=== PATIENT | male | born 1975 | race Caucasian/White ===

== ENCOUNTER → 2017-07-15 | Outpatient (CLI) | payer OTHER ==
--- NOTE | 2017-07-15 12:53 | RAD ---
Indication neck pain. No history of injury. AP and lateral views of the cervical spine were obtained as well as an odontoid view. C1-T1 are identified. Vertebral height alignment and disc spaces are unremarkable. There are no significant degenerative changes apparent on plain films. Prevertebral soft tissues appear normal. IMPRESSION: Normal plain films of the cervical spine
== END | disposition home or self-care (01) ==
LOC: DXRADRC 12:40
PROVIDERS: ATTEND Nurse Practitioner Family
DX: M54.2 Cervicalgia (principal)
CPT/HCPCS: 72040

== ENCOUNTER 2018-09-04 06:53 | Observation (INO) | payer OTHER ==
[~2018-09-04] VITALS: Ht 177.8 cm; Wt 99.8 kg
--- NOTE | 2018-09-04 07:11 | EKG ---
[address] [address] Test Date: 2018-09-04 Test Time: 07:04:37 Pat Name: THEODORE BUENO Department: Room: Gender: M Rivet Heater: : 1975 Requested By: THEODORE ROBLERO Order Number: [id number] Reading MD: Jimy Licea Measurements Intervals [place] Rate: 89 P: 40 ND: 150 QRS: 26 QRSD: 96 T: 12 QT: 328 QTc: 405 Interpretive Statements SINUS RHYTHM NORMAL ECG Electronically Signed On 09-12-2018 9:38:11 DENTAL AIDE by Jimy Licea
[2018-09-04] MEDS ORDERED: cloNIDine HCL 0.1 MG TABLET PO ONE (07:15)
[2018-09-04 07:57] LABS: BASO # 0.1 x10^3/uL (0.0-0.2); BASO % 1 % (0-3); EOS # 0.2 x10^3/uL (0.0-0.7); EOS % 3 % (0-3); HEMATOCRIT 50.7 % (39.0-53.0); HEMOGLOBIN 17.4 g/dL (13.0-17.5); LYMPH # 2.2 x10^3/uL (1.0-4.8); LYMPH % 35 % (24-48); MEAN CORPUSCULAR HEMOGLOBIN 31 pg (25-35); MEAN CORPUSCULAR HGB CONC 34 g/dL (31-37); MEAN CORPUSCULAR VOLUME 90 fL (79-100); MONO # 0.6 x10^3/uL (0.0-1.1); MONO % 10 % (0-9); NEUT # 3.1 x10^3uL (1.8-7.7); NEUT % 50 % (31-73); PLATELET COUNT 227 x10^3/uL (140-400); RED BLOOD COUNT 5.62 x10^6/uL (4.30-5.70); WHITE BLOOD COUNT 6.1 x10^3/uL (4.0-11.0)
[2018-09-04 08:03] LABS: AMPHETAMINE/METHAMPHETAMINE NEG (NEG); BARBITURATES NEG (NEG); BENZODIAZEPINES NEG (NEG); CANNABINOIDS NEG (NEG); COCAINE NEG (NEG); METHADONE NEG (NEG); OPIATES NEG (NEG); PHENCYCLIDINE NEG (NEG)
[2018-09-04 08:13] LABS: ALBUMIN 3.8 g/dL (3.4-5.0); ALBUMIN/GLOBULIN RATIO 1.3 (1.0-1.7); CALCIUM 8.4 mg/dL (8.5-10.1); GFR 81.2; TOTAL BILIRUBIN 0.3 mg/dL (0.2-1.0); TOTAL PROTEIN 6.7 g/dL (6.4-8.2)
--- NOTE | 2018-09-04 08:24 | RAD ---
CHEST AP ONLY History: PCXR -extreme shortness of breath, has lessened since arrival in ED. Comparison: October 28, 2016 image but the report is not available. Cardiomediastinal silhouette: Not grossly enlarged. Lungs: No focal airspace consolidation. Pleura: No evidence of pleural effusion. Pneumothorax: None visualized Support Devices: None. Impression: Stable exam, no acute infiltrate. Electronically signed by: Ronald Garvey MD (09/04/2018 8:20 AM) [id number]
[2018-09-04 08:28] LABS: POTASSIUM 3.9 mmol/L (3.5-5.1)
[2018-09-04] MEDS ORDERED: ONDANSETRON PF 4 MG/2 ML VIAL. IV PRN (08:45)
--- NOTE | 2018-09-04 09:50 | PDOC2 ---
REJI QUINTANA APRN 09/04/18 0950: CONSULT Date of Admission DATE: 09/04/18 TIME: 09:39 Reason for Consult: cp History of Present Illness Mr Sotelo is a 43 year old male who presented to the ED with complaints of chest pressure and dyspnea after sexual activity this am. He reports feeling like he was unable to get a deep breath. His discomfort Lasted ~45 min. He deneis any exacerbating / relieving factors. He denies radiation or other associated symptoms. He reports 1 prior episode similar in June while snorkeling in [place]. At the time he thought it was anxiety. He denies regular exercise but active at work. He is able to walk up and down stairs in his home without problems. He denies congestive symptoms, palpitations, lightheadedness , or syncope. He does snore, wakes up frequently at night to urinate, and complains of fatigue. He states that his says he has sleep apnea. Cardiovascular: hyperipidemia Pulmonary: Other (witnessed ORAL, not diagnosed.) Psych: Anxiety Musculoskeletal: low back pain (Chronic), Osteoarthritis ENT: Sinusitis, Other (chronic serous otitis) Endocrine: Osteoporosis (hypogonadism ), Other Past Surgical History lumbar discectomy Family History premature coronary disease, diabetes Social History smoker, social ETOH, no illicit drugs Current Medications Home meds include Vytorin, tricor, testosterone Current Medications Clonidine HCl (Catapres) 0.2 mg 1X ONCE PO Last administered on 09/04/18at 07: 36; Start 09/04/18 at 07:15; Stop 09/04/18 at 07:29; Status DC Ondansetron HCl (Zofran) 4 mg PRN Q4HRS PRN IV NAUSEA/VOMITING; Start at 08:45; Stop 09/05/18 at 08:44 Allergies: Coded Allergies: No Known Drug Allergies (Unverified , 09/04/18) Review of System as per HPI or negative General: Alert, Oriented X3, Cooperative, No acute distress HEENT: Atraumatic, EOMI, Mucous membr. moist/pink Lungs: Clear to auscultation, Normal air movement Heart: Regular rate, Normal S1, Normal S2, No murmurs, Other (no gallops, clicks or rubs) Abdomen: Normal bowel sounds, Soft, No tenderness Extremities: No cyanosis, No edema, Normal pulses Neuro: Normal speech, Strength at 5/5 X4 ext, Cranial nerves 3-12 NL Psych/Mental Status: Mental status NL, Mood NL VITALS Vital Signs Date Time Temp Pulse Resp B/P (MAP) Pulse Ox O2 Delivery O2 Flow Rate FiO2 09/04/18 08:02 18 157/90 (112) 09/04/18 07:36 95 09/04/18 07:19 98.4 94 Room Air Labs Laboratory Tests Test 09/04/18 07:31 09/04/18 07:36 Urine Opiates Screen Neg (NEG) Urine Methadone Screen Neg (NEG) Urine Barbiturates Neg (NEG) Urine Phencyclidine Screen Neg (NEG) Urine Amphetamine/Methamphetamine Neg (NEG) Urine Benzodiazepines Screen Neg (NEG) Urine Cocaine Screen Neg (NEG) Urine Cannabinoids Screen Neg (NEG) Urine Ethyl Alcohol Neg (NEG) White Blood Count 6.1 x10^3/uL (4.0-11.0) Red Blood Count 5.62 x10^6/uL (4.30-5.70) Hemoglobin 17.4 g/dL (13.0-17.5) Hematocrit 50.7 % (39.0-53.0) Mean Corpuscular Volume 90 fL (79-100) Mean Corpuscular Hemoglobin 31 pg (25-35) Mean Corpuscular Hemoglobin Concent 34 g/dL (31-37) Red Cell Distribution Width 13.0 % (11.5-14.5) Platelet Count 227 x10^3/uL (140-400) Neutrophils (%) (Auto) 50 % (31-73) Lymphocytes (%) (Auto) 35 % (24-48) Monocytes (%) (Auto) 10 % (0-9) Eosinophils (%) (Auto) 3 % (0-3) Basophils (%) (Auto) 1 % (0-3) Neutrophils # (Auto) 3.1 x10^3uL (1.8-7.7) Lymphocytes # (Auto) 2.2 x10^3/uL (1.0-4.8) Monocytes # (Auto) 0.6 x10^3/uL (0.0-1.1) Eosinophils # (Auto) 0.2 x10^3/uL (0.0-0.7) Basophils # (Auto) 0.1 x10^3/uL (0.0-0.2) Sodium Level 139 mmol/L (136-145) Potassium Level 3.9 mmol/L (3.5-5.1) Chloride Level 103 mmol/L (98-107) Carbon Dioxide Level 24 mmol/L (21-32) Anion Gap 12 (6-14) Blood Urea Nitrogen 13 mg/dL (8-26) Creatinine 1.0 mg/dL (0.7-1.3) Estimated GFR (Cockcroft-Gault) 81.2 BUN/Creatinine Ratio 13 (6-20) Glucose Level 140 mg/dL (70-99) Calcium Level 8.4 mg/dL (8.5-10.1) Total Bilirubin 0.3 mg/dL (0.2-1.0) Aspartate Amino Transf (AST/SGOT) 25 U/L (15-37) Alanine Aminotransferase (ALT/SGPT) 44 U/L (16-63) Alkaline Phosphatase 52 U/L (46-116) Troponin I Quantitative < 0.017 ng/mL (0-0.055) Total Protein 6.7 g/dL (6.4-8.2) Albumin 3.8 g/dL (3.4-5.0) Albumin/Globulin Ratio 1.3 (1.0-1.7) Images CXR - Impression: Stable exam, no acute infiltrate. EKG- sinus rhythm, no acute ischemic abn Assessment/Plan 1. Chest pain - CE neg x 1, no acute ischemia on EKG. Start aspirin, check echo, low dose metoprolol. Serial enzymes. If enzymes remain negative and echo without significant abn would be ok for outpatient MPI. 2. HTN - Likely some contribution from chronic decongestant use. monitor. start low dose metoprolol. If echo wnl could consider alternative antihypertensive. 3. HLD - check lipids, resume home statin. PHILLIP BUCHANAN MD 09/04/18 6786: CONSULT Assessment/Plan Patient seen and examined. Agree with MANAGER SEARCH's assessment and plan. CP with atypical features ME ruled out 2D echo showed normal LV function without any WMA Plan for ischemic evaluation as outpatient Thank you for your consultation REJI QUITNANA APRN Sep 04, 2018 09:50 PHILLIP BUCHANAN MD Sep 04, 2018 21:35
[2018-09-04] MEDS ORDERED: ASPIRIN ENTERIC COATED 325 MG TABLET.DR. PO SCH (10:00)
[2018-09-04] MEDS ORDERED: KETOROLAC 30 MG/ML VIAL. IV ONE (10:00)
[2018-09-04] MEDS ORDERED: TEST200V3 IM (10:08)
[2018-09-04] MEDS ORDERED: IBUP400T18 PO (10:08)
[2018-09-04] MEDS ORDERED: PSEU120T9 PO (10:08)
[2018-09-04] MEDS ORDERED: EZET1TAB61 PO (10:08)
[2018-09-04 10:43] VITALS: BP 144/100
--- NOTE | 2018-09-04 11:30 | ED.ADGEN ---
Past History Past Medical History: High Cholesterol Alcohol Use: None Drug Use: None Adult General Chief Complaint Chief Complaint Chest heaviness HPI HPI Patient is a 43-year-old male presents with chest heaviness during sexual her course this a.m. Chest heaviness associated approximately 45 minutes though dyspnea. Pain is nonradiating. No cough, sore throat, abdominal or back pain. Denies T exercise, denies exertion going up and down steps. Patient is active at work denies symptoms going up and down powerlines. No other acute symptoms or complaints. [] Review of Systems Review of Systems ROS as per HPI All other systems were reviewed and found to be within normal limits, except as documented in this note. Current Medications Current Medications Current Medications Medications (Trade) Dose Ordered Sig/Laney Start Time Stop Time Status Last Admin Dose Admin Clonidine HCl (Catapres) 0.2 mg 1X ONCE 09/04/18 07:15 09/04/18 07:29 DC 09/04/18 07:36 0.2 MG Allergies Allergies Allergies Coded Allergies Type Severity Reaction Last Updated Verified No Known Drug Allergies 09/04/18 No Physical Exam Physical Exam Constitutional: Well developed, well nourished, no acute distress, non-toxic appearance. [] HENT: Normocephalic, atraumatic, bilateral external ears normal, oropharynx moist, no oral exudates, nose normal. [] Eyes: PERRLA, EOMI, conjunctiva normal, no discharge. [] Neck: Normal range of motion, no tenderness. [] Cardiovascular:Heart rate regular rhythm, no murmur [] Lungs & Thorax: Bilateral breath sounds clear to auscultation [] Abdomen: Bowel sounds normal, soft, no tenderness. [] Skin: Warm, dry. [] Back: No tenderness. [] Extremities: No tenderness. [] Neurologic: Alert and oriented X 3, normal motor function, normal sensory function, no focal deficits noted. [] Psychologic: Affect normal, judgement normal, mood normal. [] Current Patient Data Vital Signs Vital Signs Date Time Temp Pulse Resp B/P (MAP) Pulse Ox O2 Delivery O2 Flow Rate FiO2 09/04/18 08:02 18 157/90 (112) 09/04/18 07:36 95 09/04/18 07:19 98.4 94 Room Air Lab Results Laboratory Tests Test 09/04/18 07:31 09/04/18 07:36 Urine Opiates Screen Neg (NEG) Urine Methadone Screen Neg (NEG) Urine Barbiturates Neg (NEG) Urine Phencyclidine Screen Neg (NEG) Urine Amphetamine/Methamphetamine Neg (NEG) Urine Benzodiazepines Screen Neg (NEG) Urine Cocaine Screen Neg (NEG) Urine Cannabinoids Screen Neg (NEG) Urine Ethyl Alcohol Neg (NEG) White Blood Count 6.1 x10^3/uL (4.0-11.0) Red Blood Count 5.62 x10^6/uL (4.30-5.70) Hemoglobin 17.4 g/dL (13.0-17.5) Hematocrit 50.7 % (39.0-53.0) Mean Corpuscular Volume 90 fL (79-100) Mean Corpuscular Hemoglobin 31 pg (25-35) Mean Corpuscular Hemoglobin Concent 34 g/dL (31-37) Red Cell Distribution Width 13.0 % (11.5-14.5) Platelet Count 227 x10^3/uL (140-400) Neutrophils (%) (Auto) 50 % (31-73) Lymphocytes (%) (Auto) 35 % (24-48) Monocytes (%) (Auto) 10 % (0-9) H Eosinophils (%) (Auto) 3 % (0-3) Basophils (%) (Auto) 1 % (0-3) Neutrophils # (Auto) 3.1 x10^3uL (1.8-7.7) Lymphocytes # (Auto) 2.2 x10^3/uL (1.0-4.8) Monocytes # (Auto) 0.6 x10^3/uL (0.0-1.1) Eosinophils # (Auto) 0.2 x10^3/uL (0.0-0.7) Basophils # (Auto) 0.1 x10^3/uL (0.0-0.2) Sodium Level 139 mmol/L (136-145) Potassium Level 3.9 mmol/L (3.5-5.1) Chloride Level 103 mmol/L (98-107) Carbon Dioxide Level 24 mmol/L (21-32) Anion Gap 12 (6-14) Blood Urea Nitrogen 13 mg/dL (8-26) Creatinine 1.0 mg/dL (0.7-1.3) Estimated GFR (Cockcroft-Gault) 81.2 BUN/Creatinine Ratio 13 (6-20) Glucose Level 140 mg/dL (70-99) H Calcium Level 8.4 mg/dL (8.5-10.1) L Total Bilirubin 0.3 mg/dL (0.2-1.0) Aspartate Amino Transferase (AST) 25 U/L (15-37) Alanine Aminotransferase (ALT) 44 U/L (16-63) Alkaline Phosphatase 52 U/L (46-116) Troponin I Quantitative < 0.017 ng/mL (0-0.055) Total Protein 6.7 g/dL (6.4-8.2) Albumin 3.8 g/dL (3.4-5.0) Albumin/Globulin Ratio 1.3 (1.0-1.7) EKG EKG [EKG: Normal sinus rhythm, no acute ST-T wave changes.] Radiology/Procedures Radiology/Procedures [] Course & Med Decision Making Course & Med Decision Making Pertinent Labs and Imaging studies reviewed. (See chart for details) [Symptoms resolved with treatment of blood pressure. Troponin, EKG negative. Will admit for further cardiac evaluation.] Final Impression Final Impression [1 Chest pain 2. HTN] Dragon Disclaimer Dragon Disclaimer This electronic medical record was generated, in whole or in part, using a voice recognition dictation system. THEODORE ROBLERO DO Sep 04, 2018 11:30
[2018-09-04] MEDS ORDERED: PSEUDOEPHEDRINE ER 120 MG TABLET.ER. PO SCH (13:00)
[2018-09-04 15:14] VITALS: BP 136/89
[2018-09-04] MEDS ORDERED: METO25TA4 PO (16:58)
--- NOTE | 2018-09-04 17:41 | CARD ---
MR#: [id number] Date of Study: 09/04/2018 Ordering Physician: REJI QUINTANA, Referring Physician: ANTIONE CHO, Tech: Catia Smith APPROVED REPORT EXAM: Two-dimensional and M-mode echocardiogram with Doppler and color Doppler. Other Information Quality : GoodHR: 69bpm INDICATION Chest Pain RISK FACTORS Hypertension Hyperlipidemia Smoking 2D DIMENSIONS RVDd3.2 (2.9-3.5cm)Left Atrium(2D)4.2 (1.6-4.0cm) IVSd1.2 (0.7-1.1cm)Aortic Root(2D)3.5 (2.0-3.7cm) LVDd5.2 (3.9-5.9cm)LVOT Diameter2.4 (1.8-2.4cm) PWd1.5 (0.7-1.1cm)LVDs3.6 (2.5-4.0cm) FS (%) 32.0 %SV78.6 ml LVEF(%)59.7 (>50%) Aortic Valve AoV Peak Faraz.152.0cm/sAoV VTI28.1cm AO Peak GR.9.2mmHgLVOT Peak Faraz.100.8cm/s LVOT VTI 20.75cmAO Mean GR.6mmHg ERASMO (VMAX)2.21ej5RTP (VTI)3.25cm2 Mitral Valve MV E Dgcdgehq58.4cm/sMV DECEL [id number] MV A Bkiecqpq56.5cm/sE/A Ratio1.3 Pulmonary Valve PV Peak Zkxdxmcj763.0cm/sPV Peak Grad.4mmHg Tricuspid Valve TR P. Wxskqnww870lc/sRAP YICQHQSQ49pxSz TR Peak Gr.15seOpMWPM29wcRa LEFT VENTRICLE The left ventricle is normal size. There is moderate concentric left ventricular hypertrophy. The lef t ventricular systolic function is normal. The Ejection Fraction is 55-60%. There is normal LV segmen apple wall motion. Transmitral Doppler flow pattern is Grade II-pseudonormal filling dynamics. RIGHT VENTRICLE The right ventricle is normal size. There is normal right ventricular wall thickness. The right ventr icular systolic function is normal. ATRIA The left atrium size is normal. The right atrium size is normal. The interatrial septum is intact wit h no evidence for an atrial septal defect or patent foramen ovale as noted on 2-D or Doppler imaging. AORTIC VALVE The aortic valve is normal in structure and function. Doppler and Color Flow revealed trace aortic re gurgitation. There is no significant aortic valvular stenosis. MITRAL VALVE The mitral valve is normal in structure and function. There is no mitral valve stenosis. Doppler and Color-flow revealed trace mitral regurgitation. TRICUSPID VALVE The tricuspid valve is normal in structure and function. Doppler and Color Flow revealed trace tricus pid regurgitation. There is no tricuspid valve stenosis. PULMONIC VALVE The pulmonic valve is not well visualized. Doppler and Color Flow revealed trace pulmonic valvular re gurgitation. GREAT VESSELS The aortic root is normal in size. The IVC is dilated. PERICARDIAL EFFUSION There is no evidence of significant pericardial effusion. Critical Notification Critical Value: No <Conclusion> The left ventricular systolic function is normal. The Ejection Fraction is 55-60%. There is normal LV segmental wall motion. Trace mitral regurgitation. Trace tricuspid regurgitation. There is no evidence of significant pericardial effusion. Signed by : Jimy Licea, Electronically Approved : 09/04/2018 17:40:06
--- NOTE | 2018-09-04 18:07 | SSS ---
ADMIT DATE: 09/04/2018 HISTORY OF PRESENT ILLNESS: The patient is a 43-year-old male patient, who developed chest pressure and dyspnea after sexual activity this morning that lasted about 45 minutes. No exacerbating or relieving factors. No radiation. He apparently has 1 prior episode similar in June while snorkeling in [place], told it was anxiety. No regular exercise, but is active at work, up and down stairs in home without problems. No congestive symptoms, no palpitations, lightheadedness, syncope, snores, up frequently at night for urination. Complains of fatigue and states he has sleep apnea. PAST MEDICAL HISTORY: Significant for hyperlipidemia, especially hypertriglyceridemia, osteoarthritis, hypertension, chronic low back pain due to osteoarthritis and chronic otitis and osteoporosis as well as hypogonadism. PAST SURGICAL HISTORY: Significant for lumbar diskectomy. ALLERGIES: He has no known drug allergies. MEDICATIONS: He is currently on following medications: He is on pseudoephedrine 120 mg once a day, Zetia/simvastatin 10/20 one tablet once a day, ibuprofen 400 mg every 6 hours and testosterone cypionate 200 mg intramuscular once a week. FAMILY HISTORY: He has 1 older sister, who is alive and has type 2 diabetes. Mother is still alive and has hypertension and hyperlipidemia. Father is still alive, has diabetes, coronary artery disease, status post stent deployment and prostate cancer treated with radiation therapy. SOCIAL HISTORY: He is , has a son and a daughter. He smokes and chews tobacco. He does not drink alcohol. 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 REVIEW OF SYSTEMS: The patient denied any blurring of vision, cataract, or glaucoma. He has problems with his ear, which get clogged and usually ibuprofen and pseudoephedrine helps with that feeling. He does have stuffy nose, but denied any nosebleeds or postnasal drip. Denies any sore throat, sore tongue, toothache, hoarseness of voice or difficulty swallowing. Denied any nausea, vomiting, diarrhea or constipation. Denied any hematemesis, melena or hematochezia. Denied any dysuria, frequency or hematuria. Did complain of nocturia. He did complain of this chest pain, but denied any shortness of breath, orthopnea, paroxysmal nocturnal dyspnea. Denied any cough, phlegm or hemoptysis. Denied any chills, rigors, or fever. Denied any dizziness, lightheadedness, or vertigo. PHYSICAL EXAMINATION: GENERAL: On arrival to the Emergency Room, his blood pressure was high at 154/95. VITAL SIGNS: Heart rate was 95, temperature was 98.4, respiratory rate was 18 and oxygen saturation was 94%. HEAD, EYES, EARS, NOSE AND THROAT: Showed normocephalic, atraumatic. NECK: Supple. HEART: Showed normal first and second heart sounds. No gallop, rub or murmur. CHEST: Clear to auscultation. No crepitation or rhonchi. ABDOMEN: Distended, soft, nontender. No guarding or rigidity. No organomegaly. All hernial orifice intact. Bowel sounds normal. NEUROLOGIC: He was awake, alert, responding appropriately. All cranial nerves intact. He moves extremities without difficulty, ambulates without assistance or assistive devices. LABORATORY DATA: While in the Emergency Room, he has lab work done, which showed a serum sodium 139, potassium 3.9, chloride 103, bicarbonate 24, anion gap of 12, BUN 13, creatinine 1, estimated GFR was 81 mL per minute, his glucose was 140, calcium was 8.4. Total bilirubin, AST, ALT, alkaline phosphatase were normal. His total protein was 6.7, albumin 3.8. His white cell count was 6100, hemoglobin 17, hematocrit 50.7, MCV 90 and platelet count of 227,000 with normal manual differential and his first set of cardiac enzyme was less than 0.017. His toxic screen was negative. His EKG showed that was in sinus rhythm with no acute ST-T changes. ASSESSMENT AND PLAN: Basically, the patient was admitted and has had 2 more sets of cardiac enzyme. He was seen in consultation by the Cardiology team and they recommended an echocardiogram and a stress test as an outpatient. I did recommend that the patient should follow with an ENT surgeon to basically try to discontinue this pseudoephedrine as well as the ibuprofen. He has nocturia and his blood sugar is slightly high. He probably has diabetes. The patient has a family history of diabetes and probably needs to check that with his primary care physician. ANTIONE CHO MD DR: SANTOSH/molly JOB#: [id number] / [id number]
[2018-09-04] MEDS ORDERED: METOPROLOL TART IMMED RELEASE 25 MG TABLET PO SCH (21:00)
== END 2018-09-04 17:21 | disposition home or self-care (01) ==
LOC: ER 06:53 → 1 SOUTH 08:30 → INTOOBSV 08:30
PROVIDERS: ADMIT Internal Medicine; ATTEND Internal Medicine
DX: R07.89 Other chest pain (principal); E78.5 Hyperlipidemia, unspecified; E78.1 Pure hyperglyceridemia; E78.00 Pure hypercholesterolemia, unspecified; I10 Essential (primary) hypertension; F17.200 Nicotine dependence, unspecified, uncomplicated; Z83.3 Family history of diabetes mellitus; M81.0 Age-related osteoporosis without current pathological fracture; H65.90 Unspecified nonsuppurative otitis media, unspecified ear; G89.29 Other chronic pain; Z79.899 Other long term (current) drug therapy; Z82.49 Family history of ischemic heart disease and other diseases of the circulatory system; Z80.42 Family history of malignant neoplasm of prostate
CPT/HCPCS: 36415; 71045; 80053; 80061; 80307; 84484; 85025; 93005; 93306; 96374; 99284; G0378; J1885; G0379

== ENCOUNTER → 2018-09-22 | Outpatient (CLI) | payer OTHER ==
[2018-09-04 15:14] VITALS: BP 136/89
[~2018-09-22] MED LIST: EZET1TAB61 PO; IBUP400T18 PO; METO25TA4 PO; PSEU120T9 PO; TEST200V3 IM
--- NOTE | 2018-09-22 16:13 | RAD ---
RS Compliance Statement: One or more of the following individualized dose reduction techniques were utilized for this examination: 1. Automated exposure control 2. Adjustment of the mA and/or kV according to patient size 3. Use of iterative reconstruction technique CT maxillofacial without contrast September 22, 2018 INDICATION: Chronic sinusitis with bilateral year pain. TECHNIQUE: Multiple axial CT images of the maxillofacial structures were obtained without intravenous contrast. Coronal and sagittal reformats are provided. FINDINGS: Ventricles, sulci and basal cisterns are normal in appearance. No suspicious cerebral parenchymal abnormality is identified. Posterior fossa is normal in appearance. Orbits are normal in appearance. No lens dislocation. Globes are spherical and contour. Extraocular muscles are intact. There is mild straightening of the optic nerves without definite proptosis. There is near complete opacification of the left maxillary sinus. There is occlusion of the left ostiomeatal unit. There is mild mucosal thickening of the right maxillary sinus. Right ostiomeatal unit is patent. Skull base is intact. No osseous erosions are identified. Osseous orbits are intact. Nasal septum is minimally deviated to the right. Ethmoid air cells are well aerated. Frontal sinuses and sphenoid sinuses are well aerated. Skull base is intact. Mastoid air cells are well aerated. Middle ear cavities are well aerated. Middle ear ossicles appear normal. Skull base neural foramina are intact. IMPRESSION: Near complete opacification of left maxillary sinus with occlusion of the left ostiomeatal unit. Findings most favors sinus inflammatory changes. Minimal deviation of the nasal septum to the right. Electronically signed by: Dulce Cross MD (09/22/2018 2:22 PM) [id number]
== END | disposition home or self-care (01) ==
LOC: CT 10:28
PROVIDERS: ATTEND Otolaryngology
DX: J01.91 Acute recurrent sinusitis, unspecified (principal); J34.2 Deviated nasal septum; F17.210 Nicotine dependence, cigarettes, uncomplicated
CPT/HCPCS: 70486

== ENCOUNTER 2021-11-04 23:11 | Emergency (ER) | payer OTHER ==
[~2021-11-04] VITALS: Ht 177.8 cm; Wt 104.5 kg
[~2021-11-04 23:11] MED LIST changes: -EZET1TAB61 PO; +[UNRECOGNIZED DRUG - CODE] PO
--- NOTE | 2021-11-04 23:16 | PHYS DOC ---
Past History Past Medical History: High Cholesterol Alcohol Use: None Drug Use: None General Adult HPI: HPI: ".. I am having really bad back pain.. I can't sleep with it tonight... ". I ve been getting physical therapy .. on this Rt. shoulder.. They say I am probably going to have to have rotator cuff repair in this right shoulder... But the been make me do physical therapy... but all sudden two day ago.. 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 Patient has been getting therapy for his right shoulder for rotator cuff. Patient is neurovascular i ntact. Patient denies any acute injury. Patient denies any fever chills. Patient denies any history immunosuppression. Does have a past medical history of sleep apnea, lumbar discectomy, osteoporosis, hypogonadism groin and abdomen, osteoarthritis, hyperlipidemia, hypertrichosis anemia, osteoarthritis, hypertension, and tobacco use. Pt. follows with [facility]. Review of Systems: Review of Systems: Constitutional: Denies fever or chills Eyes: Denies change in visual acuity HENT: Denies nasal congestion or sore throat Respiratory: Denies cough or shortness of breath Cardiovascular: Denies chest pain or edema GI: Denies abdominal pain, nausea, vomiting, bloody stools or diarrhea : Denies dysuria Musculoskeletal: Severe upper mid thoracic muscle spasm and back pain Integument: Denies rash Neurologic: Denies headache, focal weakness or sensory changes Endocrine: Denies polyuria or polydipsia Lymphatic: Denies swollen glands Psychiatric: Denies depression or anxiety Family History: Family History: There is family history of 1 older sister has diabetes, mother is alive and has hypertension hyperlipidemia. Father is alive and has diabetes coronary disease status post stent deployment and prostate cancer. Current Medications: Current Meds: See nursing for home meds Allergies: Allergies: Allergies Coded Allergies Type Severity Reaction Last Updated Verified No Known Drug Allergies 09/04/18 No Physical Exam: PE: Constitutional: in acute distress, non-toxic appearance. [] HENT: Normocephalic, atraumatic, bilateral external ears normal, oropharynx moist, no oral exudates, nose normal. [] Eyes: PERRLA, EOMI, conjunctiva normal, no discharge. [] Neck: Normal range of motion, no tenderness, supple, no stridor. More than 17 inches circumference Cardiovascular: Tachycardia heart rate regular rhythm, no murmur [] Lungs & Thorax: Bilateral breath sounds equal apex scattered wheezes on auscultation [] Abdomen: Bowel sounds normal, soft, no tenderness, no masses, no pulsatile masses. Obese Skin: Warm, dry, no erythema, no rash. [] Back: Med thoracic approximately T7 muscle spasm trapezius tenderness, no CVA tenderness. Lumbosacral surgery scar. Extremities: No lower leg tenderness, no cyanosis, no clubbing, ROM intact, no edema. No cording appreciated. Pain and movement of right rotator cuff Neurologic: Alert and oriented X 3, moves all extremities on request, and does have distal sensory, no focal deficits noted. [] DTRs +2 patella and brachial. Psychologic: Affect very anxious, judgement normal, mood normal. [] EKG: EKG: My interpretation EKG shows sinus rhythm at 90 bpm. No acute morphology. Time of EKG is 00 28 minutes [] Radiology/Procedures: Radiology/Procedures: [place] [address] IMAGING REPORT Signed PATIENT: THEODORE BUENO ACCOUNT: [id number] : 1975 LOCATION: ER AGE: 46 SEX: M EXAM STATUS: REG ER ORD. PHYSICIAN: YVETTE SALDIVAR MD REASON: torcolis Rt, severe neck and upper back pain x 2 days PROCEDURE: CT CERVICAL SPINE WO CONTRAST CT C-Spine without contrast: Clinical History: Reason: torcolis Rt, severe neck and upper back pain x 2 days / Spl. Instructions: / History: Technique: Axial helical images of the cervical spine were obtained without contrast, axial coronal and sagittal reconstruction was performed. Findings: There is no loss of vertebral body stature. There is no prevertebral soft tissue swelling. The vertebral bodies are well aligned. The C1-C2 relationship is normal. The visualized osseous structures appear normal. There is no significant central or neuroforaminal stenosis. Impression: No acute findings. Clinical correlation suggested. End of impression CT thoracic spine without contrast History: Reason: torcolis Rt, severe neck and upper back pain x 2 days / Spl. Instructions: / History: Axial helical images of the thoracic spine were obtained without contrast. Axial, coronal and sagittal reconstruction was performed. Findings: The vertebral bodies are aligned. There is no loss of vertebral body stature. Evaluation of the central canal is limited without contrast. There is no evidence of significant central or neuroforaminal stenosis. Impression: No acute findings. RS Compliance Statement: One or more of the following individualized dose reduction techniques were utilized for this examination: 1. Automated exposure control 2. Adjustment of the mA and/or kV according to patient size 3. Use of iterative reconstruction technique Electronically signed by: Cory Atkinson III, MD (11/05/2021 1:30 AM) [facility] DICTATED AND SIGNED BY: CORY ATKINSON III, MD DATE: 11/05/21 0124 CC: YVETTE SALDIVAR MD; FAIZA PERSAUD ~MTH0 0 [place] [address] IMAGING REPORT Signed PATIENT: THEODORE BUENO ACCOUNT: [id number] : 1975 LOCATION: ER AGE: 46 SEX: M EXAM STATUS: REG ER ORD. PHYSICIAN: YVETTE SALDIVAR MD REASON: torcolis Rt, severe neck and upper back pain x 2 days PROCEDURE: CT CERVICAL SPINE WO CONTRAST CT C-Spine without contrast: Clinical History: Reason: torcolis Rt, severe neck and upper back pain x 2 days / Spl. Instructions: / History: Technique: Axial helical images of the cervical spine were obtained without contrast, axial coronal and sagittal reconstruction was performed. Findings: There is no loss of vertebral body stature. There is no prevertebral soft tissue swelling. The vertebral bodies are well aligned. The C1-C2 relationship is normal. The visualized osseous structures appear normal. There is no signifi cant central or neuroforaminal stenosis. Impression: No acute findings. Clinical correlation suggested. End of impression CT thoracic spine without contrast History: Reason: torcolis Rt, severe neck and upper back pain x 2 days / Spl. Instructions: / History: Axial helical images of the thoracic spine were obtained without contrast. Axial, coronal and sagittal reconstruction was performed. Findings: The vertebral bodies are aligned. There is no loss of vertebral body stature. Evaluation of the central canal is limited without contrast. There is no evidence of significant central or neuroforaminal stenosis. Impression: No acute findings. RS Compliance Statement: One or more of the following individualized dose reduction techniques were utilized for this examination: 1. Automated exposure control 2. Adjustment of the mA and/or kV according to patient size 3. Use of iterative reconstruction technique Electronically signed by: Cory Atkinson III, MD (11/05/2021 1:30 AM) [facility] DI[facility]ATED AND SIGNED BY: CORY ATKINSON III, MD DATE: 11/05/21123 CC: YVETTE SALDIVAR MD; FAIZA PERSAUD ~MTH0 [address] [address] IMAGING REPORT Signed PATIENT: THEODORE BUENO ACCOUNT: [id number] : 1975 LOCATION: ER AGE: 46 SEX: M EXAM STATUS: REG ER ORD. PHYSICIAN: YVETTE SALDIVAR MD REASON: Chest pain, upper back and neck pain PROCEDURE: CHEST PA & LATERAL XR CHEST 2V Technique: PA and lateral views of the chest were obtained. Clinical History: Reason: Chest pain, upper back and neck pain / Spl. Instructions: / History: Comparison: None. Findings: The heart and pulmonary vasculature appear within normal limits. The lungs are clear. The pleural margins are clear. Impression: No acute chest process is seen. Electronically signed by: Cory Atkinson III, MD (11/05/2021 1:53 AM) [facility] DICTATED AND SIGNED BY: CORY ATKINSON III, MD DATE: 11/05/21151 CC: YVETTE SALDIVAR MD; FAIZA PERSAUD ~EWT0 0 ][address] [address] IMAGING REPORT Signed PATIENT: THEODORE BUENO ACCOUNT: [id number] : 1975 LOCATION: ER AGE: 46 SEX: M EXAM STATUS: REG ER ORD. PHYSICIAN: YVETTE SALDIVAR MD REASON: torcolis Rt, severe neck and upper back pain x 2 days PROCEDURE: CT THORACIC SPINE WO CONTRAST CT C-Spine without contrast: Clinical History: Reason: torcolis Rt, severe neck and upper back pain x 2 days / Spl. Instructions: / History: Technique: Axial helical images of the cervical spine were obtained without contrast, axial coronal and sagittal reconstruction was performed. Findings: There is no loss of vertebral body stature. There is no prevertebral soft tissue swelling. The vertebral bodies are well aligned. The C1-C2 relationship is normal. The visualized osseous structures appear normal. There is no significant central or neuroforaminal stenosis. Impression: No acute findings. Clinical correlation suggested. End of impression CT thoracic spine without contrast History: Reason: torcolis Rt, severe neck and upper back pain x 2 days / Spl. Instructions: / History: Axial helical images of the thoracic spine were obtained without contrast. Axial, coronal and sagittal reconstruction was performed. Findings: The vertebral bodies are aligned. There is no loss of vertebral body stature. Evaluation of the central canal is limited without contrast. There is no evidence of significant central or neuroforaminal stenosis. Impression: No acute findings. PQRS Compliance Statement: One or more of the following individualized dose reduction techniques were utilized for this examination: 1. Automated exposure control 2. Adjustment of the mA and/or kV according to patient size 3. Use of iterative reconstruction technique Electronically signed by: Cory Atkinson III, MD (11/05/2021 1:30 AM) [facility] DICTATED AND SIGNED BY: CORY ATKINSON III, MD DATE: 11/05/21 0124 CC: YVETTE SALDIVAR MD; FAIZA PERSAUD ~MTH0 0 Heart Score: C/O Chest Pain: N/A Risk Factors: Risk Factors: DM, Current or recent (<one month) smoker, HTN, HLP, family history of CAD, obesity. Risk Scores: Score 0 - 3: 2.5% MACE over next 6 weeks - Discharge Home Score 4 - 6: 20.3% MACE over next 6 weeks - Admit for Clinical Observation Score 7 - 10: 72.7% MACE over next 6 weeks - Early Invasive Strategies Course & Med Decision Making: Course & Med Decision Making Pertinent Labs and Imaging studies reviewed. (See chart for details) Patient use gentle massage. Ice packs as needed. Take Flexeril 10 mg up to 3 times a day for muscle spasms. Take ibuprofen for pain. Try using lidocaine patch over area of the most tenderness. Follow-up primary care. May need physical therapy.. Vies patient that full evaluation of spinal stenosis and/or facet impingement may require intrathecal contrast with MRI. Consider follow-up with neurosurgery. If this persistent. Follow-up primary care. Have primary review ED work-up. Must follow-up. Impression: 1. Mid back spasm level of T7 2. Elevated CK 588 3. History rotator cuff tear-right 4. Alcohol use 5 History of osteoarthritis 6, Hx. osteoporosis [] Dragon Disclaimer: Dragon Disclaimer: This electronic medical record was generated, in whole or in part, using a voice recognition dictation system. Departure Departure: Referrals: FAIZA PERSAUD (PCP) Scripts Lidocaine (Lidocaine PATCH ) 1 Each Adh..patch 1 EACH TP DAILY for FOR LOCAL PAIN, #10 PATCH REMOVE AFTER 12 HOURS Prov: YVETTE SALDIVAR MD 11/05/21 Cyclobenzaprine Hcl (CYCLOBENZAPRINE HCL) 10 Mg Tablet 10 MG PO TID PRN PRN for muscle spasms, #30 TAB Prov: YVETTE SALDIVAR MD 11/05/21 Dragon Disclaimer This chart was dictated in whole or in part using Voice Recognition software in a busy, high-work load, and often noisy Emergency Department environment. It may contain unintended and wholly unrecognized errors or omissions. YVETTE SALDIVAR MD Nov 04, 2021 23:16
[2021-11-05 00:35] LABS: BASO # 0.1 x10^3/uL (0.0-0.2); BASO % 1 % (0-3); EOS # 0.2 x10^3/uL (0.0-0.7); EOS % 3 % (0-3); HEMATOCRIT 44.6 % (39.0-53.0); HEMOGLOBIN 15.5 g/dL (13.0-17.5); LYMPH # 2.7 x10^3/uL (1.0-4.8); LYMPH % 39 % (24-48); MEAN CORPUSCULAR HEMOGLOBIN 31 pg (25-35); MEAN CORPUSCULAR HGB CONC 35 g/dL (31-37); MEAN CORPUSCULAR VOLUME 89 fL (79-100); MONO # 0.8 x10^3/uL (0.0-1.1); MONO % 11 % (0-9); NEUT # 3.2 x10^3uL (1.8-7.7); NEUT % 46 % (31-73); PLATELET COUNT 242 x10^3/uL (140-400); RED CELL DISTRIBUTION WIDTH 12.9 % (11.5-14.5)
--- NOTE | 2021-11-05 00:36 | EKG ---
[address] [address] Test Date: 2021-11-05 Test Time: 00:28:31 Pat Name: THEODORE BUENO Department: Room: Gender: M Networking Technician: YESICA : 1975 Requested By: YVETTE SALDIVAR Order Number: [id number] Reading MD: Measurements Intervals Mccrory Rate: 90 P: 49 WY: 160 QRS: 43 QRSD: 98 T: 19 QT: 342 QTc: 422 Interpretive Statements SINUS RHYTHM NORMAL ECG RI6.02 No previous ECG available for comparison
[2021-11-05 00:48] LABS: CLARITY,URINE CLEAR; COLOR,URINE YELLOW
[2021-11-05 00:49] LABS: BACTERIA,URINE 0 /HPF (0-FEW); BILIRUBIN,URINE NEG (NEG); GLUCOSE,URINE NEG (NEG); NITRITE,URINE NEG (NEG); RBC,URINE 0 /HPF (0-2); SQUAMOUS EPITHELIAL CELL,UR OCC /LPF; UROBILINOGEN,URINE 0.2 mg/dL (0.2 mg/dL); WBC,URINE RARE /HPF (0-4)
[2021-11-05 00:52] LABS: CALCIUM 9.2 mg/dL (8.5-10.1); GFR 80.1; POTASSIUM 4.1 mmol/L (3.5-5.1)
[2021-11-05 00:53] LABS: BARBITURATES NEG (NEG); BENZODIAZEPINES NEG (NEG); CANNABINOIDS NEG (NEG); COCAINE NEG (NEG); METHADONE NEG (NEG); OPIATES NEG (NEG); PHENCYCLIDINE NEG (NEG)
[2021-11-05 00:55] LABS: AMPHETAMINE/METHAMPHETAMINE NEG (NEG)
[2021-11-05] MEDS ORDERED: KETOROLAC 60 MG/2 ML VIAL. IM ONE (01:00)
[2021-11-05] MEDS ORDERED: MORPHINE SULFATE 10 MG/ML SYRINGE. SQ ONE (01:00)
[2021-11-05] MEDS ORDERED: ORPHENADRINE CITRATE 60 MG/2 ML VIAL. IM ONE (01:00)
[2021-11-05] MEDS ORDERED: IV RINGERS SOLUTION,LACTATED 1,000 ML IV SCH (01:00)
[2021-11-05] MEDS ORDERED: methylPREDNISolone ACETATE 40 MG/ML VIAL. IM ONE (01:00)
[2021-11-05 01:07] LABS: ALBUMIN 4.4 g/dL (3.4-5.0); DIRECT BILIRUBIN 0.1 mg/dL (0.0-0.2); MAGNESIUM 1.8 mg/dL (1.8-2.4); TOTAL BILIRUBIN 0.3 mg/dL (0.2-1.0); TOTAL PROTEIN 7.1 g/dL (6.4-8.2)
--- NOTE | 2021-11-05 01:32 | RAD ---
CT C-Spine without contrast: Clinical History: Reason: torcolis Rt, severe neck and upper back pain x 2 days / Spl. Instructions: / History: Technique: Axial helical images of the cervical spine were obtained without contrast, axial coronal and sagittal reconstruction was performed. Findings: There is no loss of vertebral body stature. There is no prevertebral soft tissue swelling. The vert ebral bodies are well aligned. The C1-C2 relationship is normal. The visualized osseous structures a ppear normal. There is no significant central or neuroforaminal stenosis. Impression: No acute findings. Clinical correlation suggested. End of impression CT thoracic spine without contrast History: Reason: torcolis Rt, severe neck and upper back pain x 2 days / Spl. Instructions: / Histor y: Axial helical images of the thoracic spine were obtained without contrast. Axial, coronal and sagitta l reconstruction was performed. Findings: The vertebral bodies are aligned. There is no loss of vertebral body stature. Evaluation of the central canal is limited without contrast. There is no evidence of significant cent ral or neuroforaminal stenosis. Impression: No acute findings. PQRS Compliance Statement: One or more of the following individualized dose reduction techniques were utilized for this examinat ion: 1. Automated exposure control 2. Adjustment of the mA and/or kV according to patient size 3. Use of iterative reconstruction technique Electronically signed by: Ej Andrews III, MD (11/05/2021 1:30 AM) [facility]
--- NOTE | 2021-11-05 01:55 | RAD ---
XR CHEST 2V Technique: PA and lateral views of the chest were obtained. Clinical History: Reason: Chest pain, upper back and neck pain / Spl. Instructions: / History: Comparison: None. Findings: The heart and pulmonary vasculature appear within normal limits. The lungs are clear. The pleural ma rgins are clear. Impression: No acute chest process is seen. Electronically signed by: Ej Andrews III, MD (11/05/2021 1:53 AM) [facility]
[2021-11-05 02:00] VITALS: BP 171/113
[2021-11-05] MEDS ORDERED: CYCL10TA19 PO (02:13)
[2021-11-05] MEDS ORDERED: LIDO700A21 TP (02:15)
[2021-11-05] MEDS ORDERED: LIDOCAINE (700MG/PATCH) PATCH. TD ONE ×2 (03:00)
[2021-11-05] MEDS ORDERED: LIDOCAINE (700MG/PATCH) PATCH. TD SCH (03:00)
[2021-11-05] MEDS ORDERED: PATCH REMOVAL. MC SCH ×2 (21:00)
== END 2021-11-05 02:35 | disposition home or self-care (01) ==
LOC: ER 23:11
DX: M62.830 Muscle spasm of back (principal); R74.8 Abnormal levels of other serum enzymes; M19.90 Unspecified osteoarthritis, unspecified site; E78.5 Hyperlipidemia, unspecified; E78.00 Pure hypercholesterolemia, unspecified; I10 Essential (primary) hypertension; Z86.2 Personal history of diseases of the blood and blood-forming organs and certain disorders involving the immune mechanism
CPT/HCPCS: 36415; 71046; 72125; 72128; 80048; 80076; 80307; 81001; 82550; 83735; 83880; 84484; 85025; 93005; 96361; 96372; 96374; 99285; J1030; J1885; J2060; J2270; J2360; J7120